=== PATIENT | male | born 1975 | race American Indian/Alaskan Native ===

== ENCOUNTER 2020-09-24 22:56 | Emergency (ER) | payer SELFPAY ==
[2020-09-24 23:54] VITALS: BP 145/112
--- NOTE | 2020-09-25 00:30 | XRay Report ---
LEFT FOREARM 2 VIEWS INDICATION: left forearm pain. COMPARISON: No relevant prior imaging study available. FINDINGS: There is a distal radius fracture with transverse component at the distal metaphysis and longitudinal component extending proximally into the metadiaphysis and distally to the radiocarpal articular surf win. There is minimal cortical offset at the articular surface. No associated ulnar fracture is seen. IMPRESSION: 1. Distal radius fracture as above. Signer Name: Delonte Salazar MD Signed: 09/25/2020 12:26 AM Workstation Name: [id number]
--- NOTE | 2020-09-25 01:25 | Emergency Department Report ---
Upper Extremity - HPI Chief Complaint: Extremity Injury, Upper Stated Complaint: LEFT ARM PAIN Time Seen by Provider: 09/25/20 01:01 Upper Extremity: Left Forearm, Left Wrist Occurred When: 1 Day Mechanism: Fall Symptoms: Yes Pain with Movement, Yes Swelling, No Deformity, No Limited Range of Movement, No Numbness, No Weakness, No Bruising/Ecchymosis, No Laceration or Abrasion Other History: 45-year-old -[place] Citizen male presents to the emergency room for left wrist pain status post fall while at work at the [employer]. Patient states that he was doing PPD reads 1 he has slipped on water on the floor. Patient states that he had fallen and now has left wrist pain. Patient reports he has a history of hypertension and has been off of his medications. Patient denies any other injuries no loss of consciousness. ED Review of Systems ROS: Stated complaint: LEFT ARM PAIN Other details as noted in HPI Comment: All other systems reviewed and negative ED Past Medical Hx - Past Medical History Previous Medical History?: Yes Hx Hypertension: Yes - Surgical History Past Surgical History?: No - Social History Smoking Status: Never Smoker Substance Use Type: None - Medications Home Medications: Home Medications Medication Instructions Recorded Confirmed Last Taken Type HYDROcodone/APAP 7.5-325 [Embarrass 1 each PO Q8HR PRN #12 tablet 09/25/20 Unknown Rx 7.5/325] Ibuprofen [Motrin 800 MG tab] 800 mg PO Q8HR PRN #30 tablet 09/25/20 Unknown Rx Upper Extremity Exam - Exam General: Vital signs noted. No distress. Alert and acting appropriately. Head and Torso: No HEENT Abnormality, No Neck Tenderness, No Chest/Lungs Abnormality, No Abdominal Tenderness, No Back Tenderness Shoulder Exam: Yes Normal Range of Motion in Shoulder, No Shoulder Tenderness, No Clavicle Tenderness, No Shoulder Deformity, No AC Joint Tenderness Arm Exam: No Arm/Humerus Tenderness, No Arm Deformity Elbow: No Elbow Tenderness, No Normal Range of Motion in Elbow, No Elbow Deformity Forearm: No Forearm Tenderness, No Forearm Deformity, No Pain with Pronation, No Pain with Supination Wrist: Yes Wrist Tenderness (Left), Yes Pain with Axial Thumb Compression, No Normal ROM in Wrist, No Wrist Deformity, No Snuffbox Tenderness Hand: Yes Normal ROM in Digit(s), No Hand Tenderness, No Hand Deformity, No Digit Tenderness, No Digit(s) Deformity, No Tendon Dysfunction CMS Exam: No Broken Skin, No Normal Distal Pulses, No Normal Capillary Refill, No Normal Distal Sensation ED Course Vital Signs 09/24/20 23:26 Temperature 98.3 F Pulse Rate 97 H Respiratory 18 Rate Blood Pressure 145/112 O2 Sat by Pulse 97 Oximetry ED Medical Decision Making - Radiology Data Radiology results: report reviewed [facility] [address] [place] [address] XRay Report Signed Patient: SONIDO GONZALEZ MR#: [id number] : 1975 Acct:[id number] Age/Sex: 45 / M ADM Date: 09/24/20 Loc: ED Attending Dr: Ordering Physician: ED MD STIVEN Date of Service: 09/24/20 Procedure(s): XR forearm LT Accession Number(s): [id number] cc: ED MD STIVEN Fluoro Time In Minutes: LEFT FOREARM 2 VIEWS INDICATION: left forearm pain. COMPARISON: No relevant prior imaging study available. FINDINGS: There is a distal radius fracture with transverse component at the distal metaphysis and longitudinal component extending proximally into the metadiaphysis and distally to the radiocarpal articular surface. There is minimal cortical offset at the articular surface. No associated ulnar fracture is seen. IMPRESSION: 1. Distal radius fracture as above. Signer Name: Delonte Salazar MD Signed: 09/25/2020 12:26 AM Workstation Name: [id number] Transcribed By: Dictated By: Delonte Salazar MD Electronically Authenticated By: Delonte Salazar MD Signed Date/Time: 09/25/2025 DD/ TD/TT: - Medical Decision Making 45-year-old -[place] Citizen male presents to the emergency room for left wrist pain status post fall while at work at the [employer]. Patient states that he was doing PPD reads 1 he has slipped on water on the floor. Patient states that he had fallen and now has left wrist pain. Patient reports he has a history of hypertension and has been off of his medications. Patient denies any other injuries no loss of consciousness. X-ray shows a left distal radial fracture. Patient states he took 800 mg of Mot rin prior to arrival. Patient was offered Embarrass but he declined as he is not sure if he needs to have a drug test for work. Patient will be discharged home in a splint, sling, ibuprofen and Embarrass for pain management. Patient will be referred to orthopedic provider. Critical care attestation.: If time is entered above; I have spent that time in minutes in the direct care of this critically ill patient, excluding procedure time. ED Disposition Clinical Impression: Left radial head fracture Disposition: DC-01 TO HOME OR SELFCARE Is pt being admited?: No Does the pt Need Aspirin: No Condition: Stable Instructions: Cast or Splint Care, Adult, [id number] Additional Instructions: Please take pain medication as needed. Be sure to eat and drink with taking medication. Follow-up with an orthopedic provider. Do not operate heavy machinery while taking Embarrass. Prescriptions: Ibuprofen [Motrin 800 MG tab] 800 mg PO Q8HR PRN #30 tablet PRN Reason: Pain , Severe (7-10) HYDROcodone/APAP 7.5-325 [Embarrass 7.5/325] 1 each PO Q8HR PRN #12 tablet PRN Reason: Pain Referrals: PRIMARY MD WANG [Primary Care Provider] - 3-5 Days YASSINE MATTHEW MD [Staff Physician] - 3-5 Days [facility] [Provider Group] - 3-5 Days Forms: Work/School Release Form(ED)
== END 2020-09-25 01:51 | disposition home or self-care (01) ==
LOC: ED 22:56
DX: S52.125A Nondisplaced fracture of head of left radius, initial encounter for closed fracture (principal); I10 Essential (primary) hypertension; Z79.899 Other long term (current) drug therapy; W18.30XA Fall on same level, unspecified, initial encounter; Y93.89 Activity, other specified; Y92.89 Other specified places as the place of occurrence of the external cause; Y99.8 Other external cause status
CPT/HCPCS: 99283